=== PATIENT | female | born 1990 | race Caucasian/White ===

== ENCOUNTER 2016-10-09 18:21 | Emergency (ER) ==
[2016-10-09 18:21] VITALS: BMI 29.5
[2016-10-09 18:31] VITALS: BP 141/74; TEMP 97.8
--- NOTE | 2016-10-09 18:41 | ED.PDOC ---
General ED Provider: Dr. KEL LACKEY JR Chief Complaint: Abscess Stated Complaint: has abcsess to base of neck--onset one week ago--area sl red- only minimally raised--states feels like prior abscess one yr ago NO TREATMENT IN PAST NO PMD. [ End ] Time Seen by Physician: 18:39 Mode of Arrival: Walk-In Information Source: Patient Exam Limitations: No limitations Nursing and Triage Documentation Reviewed and Agree: No Review of Systems - Review Of Systems Constitutional: Reports: Malaise Eyes: Reports: No symptoms Ears, Nose, Mouth, Throat: Reports: No symptoms Respiratory: Reports: No symptoms Cardiac: Reports: No symptoms GI: Reports: No symptoms : Reports: No symptoms Musculoskeletal: Reports: No symptoms Skin: Reports: Lesions, Lumps Neurological: Reports: No symptoms Endocrine: Reports: No symptoms Hematologic/Lymphatic: Reports: No symptoms All Other Systems: Other Past Medical History - Past Medical History Previously Healthy: Yes Endocrine: Reports: None Cardiovascular: Reports: None Respiratory: Reports: None Hematological: Reports: None Gastrointestinal: Reports: None Genitourinary: Reports: None Neuro/Psych: Reports: None Musculoskeletal: Reports: None Cancer: Reports: None Last Menstrual Period: 3 weeks ago - Surgical History General Surgical History: Reports: None - Family History Family History: Reports: None - Social History Smoking Status: Current some day smoker Hx Substance Use: No Alcohol Screening: None - Immunizations Tetanus Shot up to Date: Yes Physical Exam - Physical Exam Appearance: Well-appearing Pain Distress: Moderate Neck: Supple Respiratory: Airway patent Skin: Warm, Dry (note lesion left neck posterior) Neurological: Sensation intact, Motor intact, Reflexes intact, Cranial nerves intact, Alert, Oriented Critical Care Note - Critical Care Note Total Time (mins): 0 Course - Course Vital Signs: Temp Pulse Resp BP Pulse Ox 10/09/16 18:21 97.8 F 90 16 141/74 H 98 Departure - Departure Time of Disposition: 18:39 Disposition: HOME SELF-CARE Discharge Problem: Abscess or cellulitis, neck Instructions: Cellulitis (ED) Condition: Fair Pt referred to PMD for follow-up: Yes Additional Instructions: follow up with PMD may follow up with [facility] antibiotic until gone warm soaks four times a day naprosyn for pain disucss excision of area with PMD (cut out when not inflamed) Prescriptions: Naproxen [Naprosyn] 500 mg PO Q12HR PRN #30 tablet PRN Reason: PAIN Sulfamethoxazole/Trimethoprim [Bactrim Ds Tablet] 1 tab PO Q12HR #20 tablet Allergies/Adverse Reactions: Allergies No Known Allergies Allergy (Verified 10/09/16 18:30) Home Medications: Ambulatory Orders Naproxen [Naprosyn] 500 mg PO Q12HR PRN #30 tablet 10/09/16 Sulfamethoxazole/Trimethoprim [Bactrim Ds Tablet] 1 tab PO Q12HR #20 tablet
== END 2016-10-09 18:47 | disposition home or self-care (01) ==
LOC: ED 18:21
DX: L02.11 Cutaneous abscess of neck (principal); F17.210 Nicotine dependence, cigarettes, uncomplicated
CPT/HCPCS: 99282

== ENCOUNTER 2016-12-15 16:21 | Emergency (ER) ==
[2016-12-15 16:28] VITALS: BP 156/84; TEMP 97.2; BMI 28.7
[2016-12-15] MEDS ORDERED: TORADOL IM STA (16:44)
--- NOTE | 2016-12-15 16:46 | ED.PDOC ---
General ED Provider: Dr. ALLISON HANLEY Chief Complaint: Tooth Problem Stated Complaint: while brushing today morning she boke her teeth on the rt lower jaw, hurting ever since. Time Seen by Physician: 16:44 Mode of Arrival: Walk-In Information Source: Patient Nursing and Triage Documentation Reviewed and Agree: Yes EENT Complaint Exam - Dental/Oral Complaint/Exam Mechanism of Injury: Trauma (brushing) Symptoms Are: Still present Timing: Constant Initial Severity: Moderate Current Severity: Moderate Character: Reports: Dull, Aching Aggravating: Reports: Chewing Alleviating: Reports: None Associated Signs and Symptoms: Reports: Foul odor, Foul taste in mouth. Denies : Swelling, Discharge, Fever Related History: Reports: Similar episode Cardiac Risk Factors: Reports: None Dental/Oral Surgical History: Reports: None Tooth Findings: Present: Gross decay, Gross caries Cervical Lymphadenopathy Present: No Facial Swelling Present: No Bleeding Present: No Teeth Picture: 1 - broken teeth, caries Differential Diagnoses: Dental Caries, Fractured Tooth Review of Systems - Review Of Systems Constitutional: Reports: No symptoms Eyes: Reports: No symptoms Ears, Nose, Mouth, Throat: Reports: Mouth pain Respiratory: Reports: No symptoms Cardiac: Reports: No symptoms GI: Reports: No symptoms : Reports: No symptoms Musculoskeletal: Reports: No symptoms Skin: Reports: No symptoms Neurological: Reports: No symptoms Endocrine: Reports: No symptoms Hematologic/Lymphatic: Reports: No symptoms All Other Systems: Reviewed and Negative Past Medical History - Past Medical History Previously Healthy: Yes Endocrine: Reports: None Cardiovascular: Reports: None Respiratory: Reports: None Hematological: Reports: None Gastrointestinal: Reports: None Genitourinary: Reports: None Neuro/Psych: Reports: None Musculoskeletal: Reports: None Cancer: Reports: None Last Menstrual Period: 1 week ago - Surgical History General Surgical History: Reports: None - Family History Family History: Reports: None - Social History Smoking Status: Current every day smoker, Current some day smoker, Light tobacco smoker Smoking Cessation Counseling Time: > 3 min - 10 min Hx Substance Use: No Alcohol Screening: None - Immunizations Tetanus Shot up to Date: Yes Physical Exam - Physical Exam Appearance: Well-appearing, Well-nourished Pain Distress: Mild Eyes: JUANJOSE, EOMI, Conjunctiva clear ENT: Ears normal, Nose normal, Oropharynx normal Respiratory: Airway patent, Breath sounds clear, Breath sounds equal, Respirations nonlabored Cardiovascular: RRR, Pulses normal, No rub, No murmur GI/: Soft, Nontender, No masses, Bowel sounds normal, No Organomegaly Musculoskeletal: Normal strength, ROM intact, No edema, No calf tenderness Skin: Warm, Dry, Normal color Neurological: Sensation intact, Motor intact, Reflexes intact, Cranial nerves intact, Alert, Oriented Psychiatric: Affect appropriate, Mood appropriate Critical Care Note - Critical Care Note Total Time (mins): 0 Course - Course Vital Signs: Temp Pulse Resp BP Pulse Ox 12/15/16 16:22 97.2 F L 83 18 156/84 H 98 Departure - Departure Time of Disposition: 16:49 Disposition: HOME SELF-CARE Discharge Problem: Dental caries Fractured tooth Qualifiers: Encounter type: initial encounter Fracture type: closed Qualifier Code: ( [id number]) Fracture of tooth (traumatic), initial encounter for closed fracture Instructions: Dental Caries (ED) Condition: Stable Pt referred to PMD for follow-up: Yes (dentist) Additional Instructions: soft diet NEEDS F/U WITH DENTIST Prescriptions: Tramadol HCl 50 mg PO BID #14 tablet Allergies/Adverse Reactions: Allergies No Known Allergies Allergy (Verified 12/15/16 16:27) Home Medications: Ambulatory Orders Tramadol HCl 50 mg PO BID #14 tablet 12/15/16 Disposition Discussed With: Patient
== END 2016-12-15 16:58 | disposition home or self-care (01) ==
LOC: ED 16:21
DX: S02.5XXA Fracture of tooth (traumatic), initial encounter for closed fracture (principal); K02.7 Dental root caries; F17.210 Nicotine dependence, cigarettes, uncomplicated
CPT/HCPCS: 96372; 99282

== ENCOUNTER 2017-06-07 14:24 | Emergency (ER) ==
[2017-06-07 14:25] VITALS: BMI 28.7
[2017-06-07 14:31] VITALS: BP 149/87; TEMP 99.2
[2017-06-07] MEDS ORDERED: KEFLEX PO STA (14:54)
[2017-06-07] MEDS ORDERED: CLEOCIN PO STA (14:54)
[2017-06-07] MEDS ORDERED: TORADOL IM STA (14:54)
--- NOTE | 2017-06-07 14:57 | ED.PDOC ---
General ED Provider: Dr. ALLISON HANLEY Chief Complaint: Tooth Problem Stated Complaint: Right side of the face is swollen, tender, been planing to get to Dentist. Time Seen by Physician: 14:55 Mode of Arrival: Walk-In Information Source: Patient Nursing and Triage Documentation Reviewed and Agree: Yes EENT Complaint Exam - Dental/Oral Complaint/Exam Mechanism of Injury: No known trauma Symptoms Are: Still present Timing: Constant Initial Severity: Moderate Current Severity: Moderate Character: Reports: Dull, Aching Aggravating: Reports: Chewing, Exertion Alleviating: Reports: None Associated Signs and Symptoms: Reports: Foul odor, Foul taste in mouth. Denies : Swelling, Discharge, Fever Related History: Reports: Similar episode Cardiac Risk Factors: Reports: None Dental/Oral Surgical History: Reports: None Tooth Findings: Present: Percussion tenderness, Gross decay, Gross caries, Cellulitis Facial Swelling Present: Yes Teeth Picture: 1 - swollen gums broken teeth Differential Diagnoses: Dental Abcess, Dental Caries, Gingivitis Review of Systems - Review Of Systems Constitutional: Reports: No symptoms Eyes: Reports: No symptoms Ears, Nose, Mouth, Throat: Reports: Mouth pain, Mouth swelling Respiratory: Reports: No symptoms Cardiac: Reports: No symptoms GI: Reports: No symptoms : Reports: No symptoms Musculoskeletal: Reports: No symptoms Skin: Reports: No symptoms Neurological: Reports: No symptoms Endocrine: Reports: No symptoms Hematologic/Lymphatic: Reports: No symptoms All Other Systems: Reviewed and Negative Past Medical History - Past Medical History Previously Healthy: Yes Endocrine: Reports: None Cardiovascular: Reports: None Respiratory: Reports: None Hematological: Reports: None Gastrointestinal: Reports: None Genitourinary: Reports: None Neuro/Psych: Reports: None Musculoskeletal: Reports: None Cancer: Reports: None Last Menstrual Period: 2 weeks - Surgical History General Surgical History: Reports: None - Family History Family History: Reports: None - Social History Smoking Status: Current every day smoker, Light tobacco smoker Smoking Cessation Counseling Time: > 3 min - 10 min Hx Substance Use: No Alcohol Screening: None Physical Exam - Physical Exam Appearance: Ill-appearing, Obese Eyes: JUANJOSE, EOMI, Conjunctiva clear ENT: Ears normal, Nose normal, Oropharynx normal Respiratory: Airway patent, Breath sounds clear, Breath sounds equal, Respirations nonlabored Cardiovascular: RRR, Pulses normal, No rub, No murmur GI/: Soft, Nontender, No masses, Bowel sounds normal, No Organomegaly Musculoskeletal: Normal strength, ROM intact, No edema, No calf tenderness Skin: Warm, Dry, Normal color Neurological: Sensation intact, Motor intact, Reflexes intact, Cranial nerves intact, Alert, Oriented Psychiatric: Affect appropriate, Mood appropriate Critical Care Note - Critical Care Note Total Time (mins): 0 Course - Course Orders, Labs, Meds: Orders Category Date Time Status Cephalexin [Keflex] MEDS 06/07/17 14:54 Stat 500 mg PO ONCE STA Clindamycin HCl [Cleocin] MEDS 06/07/17 14:54 Stat 300 mg PO ONCE STA Ketorolac Tromethamine [Toradol] MEDS 06/07/17 14:54 Stat 60 mg IM ONCE STA Medications Discontinued Medications Generic Name Dose Route Start Last Admin Trade Name John PRN Reason Stop Dose Admin Ketorolac Tromethamine 60 mg 06/07/17 14:54 Toradol IM 06/07/17 14:55 ONCE STA Vital Signs: Temp Pulse Resp BP Pulse Ox 06/07/17 14:25 99.2 F 92 H 20 149/87 H 98 Departure - Departure Time of Disposition: 14:59 Disposition: HOME SELF-CARE Discharge Problem: Toothache Instructions: Toothache (ED) Condition: Good Pt referred to PMD for follow-up: Yes Additional Instructions: take medication with food needs f/u with dentist Prescriptions: Cephalexin [Keflex] 500 mg PO Q12HR #20 capsule Clindamycin HCl 300 mg PO TID #15 capsule Tramadol HCl 50 mg PO BID #14 tablet Allergies/Adverse Reactions: Allergies No Known Allergies Allergy (Verified 06/07/17 14:30) Home Medications: Ambulatory Orders Cephalexin [Keflex] 500 mg PO Q12HR #20 capsule 06/07/17 Clindamycin HCl 300 mg PO TID #15 capsule 06/07/17 Tramadol HCl 50 mg PO BID #14 tablet 06/07/17 Disposition Discussed With: Patient
== END 2017-06-07 15:28 | disposition home or self-care (01) ==
LOC: ED 14:24
DX: K08.89 Other specified disorders of teeth and supporting structures (principal); F17.210 Nicotine dependence, cigarettes, uncomplicated
CPT/HCPCS: 96372; 99282

== ENCOUNTER 2017-06-08 12:31 | Emergency (ER) ==
[2017-06-08 12:31] VITALS: BMI 28.7
[2017-06-08 12:35] VITALS: BP 152/87; TEMP 98.9
--- NOTE | 2017-06-08 12:39 | ED.PDOC ---
General ED Provider: Dr. OBIE MILLER-ER Chief Complaint: Tooth Problem Stated Complaint: my tooth still hurts--"shouldnt the antbx make it better by now?" Time Seen by Physician: 12:38 Mode of Arrival: Walk-In Information Source: Patient Exam Limitations: No limitations Nursing and Triage Documentation Reviewed and Agree: Yes EENT Complaint Exam - Dental/Oral Complaint/Exam Mechanism of Injury: No known trauma Onset/Duration: several days Symptoms Are: Still present Timing: Constant Initial Severity: Mild Current Severity: Moderate Location: right promolar Character: Reports: Dull, Aching, Throbbing Aggravating: Reports: Heat, Cold, Chewing Alleviating: Reports: None Associated Signs and Symptoms: Reports: Swelling. Denies: Discharge, Fever, Foul odor Related History: Reports: Previous tooth problem Cervical Lymphadenopathy Present: No Facial Swelling Present: No Bleeding Present: No Oropharynx Findings: Absent: Clots, Active bleeding Septal Hematoma: No Foreign Body Present: No Drooling Present: No Asymmetrical Tonsillar Swelling Present: No Uvula Midline: Yes Fidelia-tonsillar Fluctuence: No Trismus Present: No Palatal Petechiae Present: No Scarlatinaform Rash Present: No Differential Diagnoses: Dental Abcess, Dental Caries, Gingivitis Review of Systems - Review Of Systems Constitutional: Reports: No symptoms Eyes: Reports: No symptoms Ears, Nose, Mouth, Throat: Reports: Mouth pain Respiratory: Reports: No symptoms Cardiac: Reports: No symptoms GI: Reports: No symptoms : Reports: No symptoms Musculoskeletal: Reports: No symptoms Skin: Reports: No symptoms Neurological: Reports: No symptoms Endocrine: Reports: No symptoms Hematologic/Lymphatic: Reports: No symptoms All Other Systems: Reviewed and Negative Past Medical History - Past Medical History Previously Healthy: Yes Endocrine: Reports: None Cardiovascular: Reports: None Respiratory: Reports: None Hematological: Reports: None Gastrointestinal: Reports: None Genitourinary: Reports: None Neuro/Psych: Reports: None Musculoskeletal: Reports: None Cancer: Reports: None Last Menstrual Period: 2 weeks ago - Surgical History General Surgical History: Reports: None - Family History Family History: Reports: None - Social History Smoking Status: Current every day smoker, Current some day smoker, Light tobacco smoker Hx Substance Use: No Alcohol Screening: None Lives: With family Physical Exam - Physical Exam Appearance: Well-appearing, No pain distress, Well-nourished Pain Distress: Moderate Eyes: JUANJOSE, EOMI, Conjunctiva clear ENT: Ears normal, Nose normal, Oropharynx normal (noted right upper premolar -- appears tender --noted some swelling around gums) Neck: Supple Respiratory: Airway patent Cardiovascular: RRR, Pulses normal, No rub, No murmur GI/: Soft, Nontender, No masses, Bowel sounds normal, No Organomegaly Musculoskeletal: Normal strength, ROM intact, No edema, No calf tenderness Skin: Warm, Dry, Normal color Neurological: Sensation intact, Motor intact, Reflexes intact, Cranial nerves intact, Alert, Oriented Psychiatric: Affect appropriate, Mood appropriate Critical Care Note - Critical Care Note Total Time (mins): 0 Course - Course Vital Signs: Temp Pulse Resp BP Pulse Ox 06/08/17 12:31 98.9 F 83 20 152/87 H 98 Departure - Departure Time of Disposition: 12:40 Disposition: HOME SELF-CARE Discharge Problem: Toothache Instructions: Toothache (ED) Condition: Good Pt referred to PMD for follow-up: Yes Additional Instructions: stop ultram---norco 7.5mg q 4hrs prn pain #10--f/u dentist maria g---continue antbx Allergies/Adverse Reactions: Allergies No Known Allergies Allergy (Verified 06/08/17 12:35) Home Medications: Ambulatory Orders Cephalexin [Keflex] 500 mg PO Q12HR #20 capsule 06/07/17 Clindamycin HCl 300 mg PO TID #15 capsule 06/07/17 Tramadol HCl 50 mg PO BID #14 tablet 06/07/17 Disposition Discussed With: Patient
== END 2017-06-08 12:51 | disposition home or self-care (01) ==
LOC: ED 12:31
DX: K08.89 Other specified disorders of teeth and supporting structures (principal); F17.210 Nicotine dependence, cigarettes, uncomplicated
CPT/HCPCS: 99282

== ENCOUNTER 2018-01-27 12:49 | Emergency (ER) ==
[2018-01-27 12:50] VITALS: BMI 28.7
--- NOTE | 2018-01-27 14:45 | ED.PDOC ---
General ED Provider: Dr. OBIE NO Chief Complaint: Abdominal Pain Stated Complaint: Severe lower abdominal and pelvic pain. Sudden onset today at 1000 hrs. States similar to problem she had several years ago with tubal infection. FDLMP 4 days ago. Denies symptoms or vaginal discharge. Patient appears in acute distress Time Seen by Physician: 14:30 Mode of Arrival: Walk-In Information Source: Patient Exam Limitations: Clinical condition [facility] Nursing and Triage Documentation Reviewed and Agree: Yes Reviewed sepsis parameters & appropriate labs ordered?: Yes System Inflammatory Response Syndrome: Not Applicable Sepsis Protocol: For patient's 13 years and over: Temp is 96.8 and below OR 101 and greater Pulse >90 BPM Resp >20/minute Acutely Altered Mental Status Are patient's symptoms suggestive of a new infection, such as: -Pneumonia -Skin, Soft Tissue -Endocarditis -UTI -Bone, Joint Infection -Implantable Device -Acute Abdominal Infection -Wound Infection -Meningitis -Blood Stream Catheter Infection -Unknown System Inflammatory Response Syndrome: Not Applicable GI Complaint Exam - Abdominal Pain Complaint/Exam Onset: Sudden Symptoms Are: Still present Timing: Constant Initial Severity: Severe Current Severity: Severe Location of Pain: Diffuse, LUQ, Suprapubic Character: Reports: Throbbing, Cramping Aggravating: Reports: Movement, Deep breaths, Position Alleviating: Reports: None Associated Signs and Symptoms: Reports: Dizziness, Back pain, Decreased urine output, Nausea. Denies: Constipation, Dysuria, Vaginal discharge, Vomiting, Diarrhea Related History: Reports: Similar episode AAA Risk Factors: Reports: None Cardiac Risk Factors: Reports: None Ectopic Risk Factors: Reports: None Ovarian Torsion Risk Factors: Reports: None Surgical Obstruction Risk Factors: Reports: None Related Surgical History: Reports: None Patient Rh Status: Unknown Abdominal Findings: Present: None Differential Diagnoses: Renal Colic, Ectopic , Ovarian Cyst, PID Review of Systems - Review Of Systems Constitutional: Reports: No symptoms Eyes: Reports: No symptoms Ears, Nose, Mouth, Throat: Reports: No symptoms Respiratory: Reports: No symptoms Cardiac: Reports: No symptoms GI: Reports: No symptoms : Reports: Flank pain, Other (pelvic pain ) Musculoskeletal: Reports: No symptoms Skin: Reports: No symptoms Neurological: Reports: No symptoms Endocrine: Reports: No symptoms Hematologic/Lymphatic: Reports: No symptoms All Other Systems: Reviewed and Negative Past Medical History - Past Medical History Previously Healthy: Yes Endocrine: Reports: None Cardiovascular: Reports: None Respiratory: Reports: None Hematological: Reports: None Gastrointestinal: Reports: None Genitourinary: Reports: None Neuro/Psych: Reports: None Musculoskeletal: Reports: None Cancer: Reports: None Last Menstrual Period: 4 days ago - Surgical History General Surgical History: Reports: None - Family History Family History: Reports: None - Social History Smoking Status: Current every day smoker, Current some day smoker, Light tobacco smoker Hx Substance Use: No Alcohol Screening: None Physical Exam - Physical Exam Appearance: Ill-appearing Pain Distress: Severe Eyes: JUANJOSE, EOMI, Conjunctiva clear ENT: Ears normal, Nose normal, Oropharynx normal Respiratory: Airway patent, Breath sounds clear, Breath sounds equal, Respirations nonlabored Cardiovascular: RRR, Pulses normal, No rub, No murmur GI/: Soft, Tender (Rebound ; no guarding ), Bowel sounds hypoactive Musculoskeletal: Normal strength Skin: Warm, Dry, Normal color Neurological: Sensation intact, Motor intact, Reflexes intact, Cranial nerves intact, Alert, Oriented Psychiatric: Affect appropriate, Mood appropriate Interpretation - Radiology Interpretation Radiology Interpretation By: Radiologist Radiology Results: Positive Exam Interpreted: CT Scan Re-Evaluation - Re-Evaluation Time of Re-Evaluation: 16:30 (Prefers [place] Referral) Status: Improved Vital Signs Stable: Yes Appearance: NAD Lungs: Clear Skin: Warm and Dry Neuro: Alert and Oriented X3 CV: RRR Additional Comments: Discussed findings with patient. Recommend transfer for OB/ CALL CENTER DISPATCHER Consult Critical Care Note - Critical Care Note Total Time (mins): 60 Course - Course Hematology/Chemistry: 01/27/18 14:47 01/27/18 15:00 Orders, Labs, Meds: Lab Review 01/27/18 01/27/18 01/27/18 13:05 14:47 15:00 WBC 10.27 H RBC 4.18 L Hgb 12.9 Hct 38.2 MCV 91.4 MCH 30.9 MCHC 33.8 RDW Coeff of Nixon 13.6 Plt Count 435 Immature Gran % (Auto) 0.3 Neut % (Auto) 61.1 Lymph % (Auto) 28.5 [place] % (Auto) 6.9 Eos % (Auto) 1.9 Baso % (Auto) 1.3 Immature Gran # (Auto) 0.0 Neut # (Auto) 6.3 Lymph # (Auto) 2.9 [place] # (Auto) 0.7 Eos # (Auto) 0.2 Baso # (Auto) 0.1 Sodium 139 Potassium 3.7 Chloride 107 Carbon Dioxide 23 Anion Gap 12.7 BUN 8 Creatinine 0.64 Estimated GFR (MDRD) 110.00 BUN/Creatinine Ratio 12.50 Glucose 79 Calcium 9.2 Total Bilirubin 0.2 AST 14 L ALT 13 Alkaline Phosphatase 57 Total Protein 6.6 Albumin 3.5 Globulin 3.1 Albumin/Globulin Ratio 1.13 Lipase 6 L Serum , Qual Urine Color Yellow Urine Clarity Clear Urine pH 7.0 Ur Specific [place] 1.015 Urine Protein Negative Urine Glucose (UA) Negative Urine Ketones Negative Urine Blood Trace-intact Urine Nitrite Negative Urine Bilirubin Negative Urine Urobilinogen 0.2 Ur Leukocyte Esterase 2+ Urine Microscopic RBC 2-5 Urine Microscopic WBC 2-5 Ur Squamous Epith Cells 10-20 Urine Trichomonas Few 01/27/18 15:00 WBC RBC Hgb Hct MCV MCH MCHC RDW Coeff of Nixon Plt Count Immature Gran % (Auto) Neut % (Auto) Lymph % (Auto) [place] % (Auto) Eos % (Auto) Baso % (Auto) Immature Gran # (Auto) Neut # (Auto) Lymph # (Auto) [place] # (Auto) Eos # (Auto) Baso # (Auto) Sodium Potassium Chloride Carbon Dioxide Anion Gap BUN Creatinine Estimated GFR (MDRD) BUN/Creatinine Ratio Glucose Calcium Total Bilirubin AST ALT Alkaline Phosphatase Total Protein Albumin Globulin Albumin/Globulin Ratio Lipase Serum , Qual Negative Urine Color Urine Clarity Urine pH Ur Specific [place] Urine Protein Urine Glucose (UA) Urine Ketones Urine Blood Urine Nitrite Urine Bilirubin Urine Urobilinogen Ur Leukocyte Esterase Urine Microscopic RBC Urine Microscopic WBC Ur Squamous Epith Cells Urine Trichomonas Orders Category Date Time Status IV [ED IV/MEDIPORT/POWERPORT] .ONCE EMERGENCY 01/27/18 14:48 Active CBC W/ AUTO DIFF Stat LAB 01/27/18 14:47 Completed CMP [COMPREHENSIVE METABOLIC PANEL] Stat LAB 01/27/18 15:00 Completed HCG QUALITATIVE [SERUM ] Stat LAB 01/27/18 15:00 Completed LIPASE Stat LAB 01/27/18 15:00 Completed UA [URINALYSIS C & S IF INDICATED] Stat LAB 01/27/18 13:05 Completed 0.9 % Sodium Chloride [Saline Flush] MEDS 01/27/18 14:47 Active 1 syr IVF PRN PRN Hydromorphone HCl [Dilaudid] MEDS 01/27/18 14:51 Discontinued 1 mg IVP ONCE STA Ondansetron HCl/Pf [Zofran 4 mg/2 ml] MEDS 01/27/18 14:51 Discontinued 4 mg IVP ONCE STA Piperacillin Sodium/Tazobactam [Zosyn 3.375 gm] 3.375 MEDS 01/27/18 16:41 Active gm 0.9 % Sodium Chloride [Sodium Chloride] 50 ml IV ONCE Sodium Chloride 0.9% [Sodium Chloride] 1,000 ml MEDS 01/27/18 14:[address] ABDOMEN/PELVIS WO CONTRAST Stat RADS 01/27/18 14:59 Completed Medications Generic Name Dose Route Start Last Admin Trade Name Freq PRN Reason Stop Dose Admin Piperacillin Sod/Tazobactam 50 mls @ 50 mls/hr 01/27/18 16:41 01/27/18 17:04 Sod 3.375 gm/ Sodium Chloride IV 01/27/18 17:40 50 mls/hr ONCE STA Administration Sodium Chloride 1 syr 01/27/18 14:47 01/27/18 15:08 Saline Flush IVF 1 syr PRN PRN Administration To flush IV Discontinued Medications Generic Name Dose Route Start Last Admin Trade Name Freq PRN Reason Stop Dose Admin Hydromorphone HCl 1 mg 01/27/18 14:51 01/27/18 15:13 Dilaudid IVP 01/27/18 14:52 1 mg ONCE STA Administration Sodium Chloride 1,000 mls @ 500 mls/hr 01/27/18 14:50 01/27/18 15:08 Sodium Chloride IV 01/27/18 16:49 500 mls/hr BOLUS STA Administration Ondansetron HCl 4 mg 01/27/18 14:51 01/27/18 15:09 Zofran 4 Mg/2 Ml IVP 01/27/18 14:52 4 mg ONCE STA Administration Vital Signs: Temp Pulse Resp BP Pulse Ox 01/27/18 16:55 97.3 F L 75 18 148/92 H 100 01/27/18 12:50 98.3 F 89 20 188/92 H 96 Departure - Departure Time of Disposition: 17:15 Disposition: TSF SHORT-TRM HOSP Discharge Problem: Acute pelvic pain, female, Adnexal mass, Trichomonas vaginalis (TV) infection Condition: Good Pt referred to PMD for follow-up: Yes IPMP verified?: No Allergies/Adverse Reactions: Allergies No Known Allergies Allergy (Verified 01/27/18 12:52) Home Medications: Ambulatory Orders 1 [No Reported Medications] 01/27/18 Transfer Form Completed: Yes Disposition Discussed With: Patient, Family (Discussed with Dr Mara Anthony at [facility]. Agrees to accept pt in transfer)
[2018-01-27] MEDS ORDERED: SODIUM CHLORIDE 1,000 ML IV STA (14:50)
[2018-01-27] MEDS ORDERED: ZOFRAN 4 MG/2 ML IVP STA (14:51)
[2018-01-27] MEDS ORDERED: DILAUDID IVP STA (14:51)
--- NOTE | 2018-01-27 15:53 | CT ---
Exam: CT abdomen pelvis without intravenous contrast. Comparison: 12/04/2014. Reason for exam: Pain. FINDINGS: There is mild basilar atelectasis without pleural effusion, or focal consolidation. The liver, gallbladder, spleen, adrenal glands, and pancreas appear grossly unremarkable within limit ations of a noncontrasted study. No hydronephrosis, hydroureter, or nephrolithiasis is seen in either kidney. No focal small bowel dilatation or transition point. No intra-abdominal free air. The appendix is unremarkable. 3.9 cm lesion measuring 20 HU in the left jamel pelvis with surrounding inflammatory change and free f luid. Imaging findings may represent adnexa/ovary in etiology. Nodular density in the subcutaneous fat of the anterior pelvis seen on axial image number 137. No estuardo picious appearing osteoblastic or osteolytic lesions. Impression: 1. 3.9 cm 20 HU lesion in the left jamel pelvis with surrounding free fluid and inflammatory change. Imaging findings are likely adnexal or ovarian in origin. Transabdominal and transvaginal ultrasonog raphic evaluation may be performed for further characterization. 2. Otherwise, no acute imaging findings are seen within the abdomen or pelvis. Report faxed at [phone] hours on 01/27/2018.
[2018-01-27] MEDS ORDERED: ZOSYN 3.375 GM 3.375 GM in SODIUM CHLORIDE 50 ML IV STA (16:41)
[2018-01-27 16:56] VITALS: BP 148/92; TEMP 97.3
[2018-01-27] MEDS ORDERED: FLAGYL 500 MG/100 ML 500 MG in PREMIX 100 ML NS 1 BAG IV STA (17:30)
== END 2018-01-27 17:55 | disposition short-term general hospital (02) ==
LOC: ED 12:49
DX: A59.01 Trichomonal vulvovaginitis (principal); R19.09 Other intra-abdominal and pelvic swelling, mass and lump; R10.2 Pelvic and perineal pain; F17.210 Nicotine dependence, cigarettes, uncomplicated
CPT/HCPCS: 36415; 80053; 81001; 83690; 84703; 85025; 96361; 96365; 96375; 99285

== ENCOUNTER 2018-01-27 17:55 | Outpatient (CLI) ==
[2018-01-27 12:50] VITALS: BMI 28.7
== END 2018-01-27 18:17 | disposition short-term general hospital (02) ==
LOC: AMBL 17:55
PROVIDERS: ATTEND Emergency Medicine
DX: R10.9 Unspecified abdominal pain (principal); R19.00 Intra-abdominal and pelvic swelling, mass and lump, unspecified site

== ENCOUNTER 2018-03-06 11:28 | Emergency (ER) ==
[2018-03-06 11:56] VITALS: BP 122/76; TEMP 98; BMI 31.8
--- NOTE | 2018-03-06 12:08 | DI ---
Exam: Three views of the right wrist. Comparison: None available. Reason for exam: Injury. FINDINGS: Minimally-displaced fracture of the right distal radius. The ulna appears intact. The ri ght wrist appears grossly unremarkable. Impression: Minimally displaced fracture of the right distal radius.
--- NOTE | 2018-03-06 12:08 | DI ---
Exam: Three views of the right hand. Comparison: None available. Reason for exam: Injury. FINDINGS: There is a minimally displaced fracture of the right distal radius. The ulna appears inta ct. The right wrist and osseous structures of the right hand appear unremarkable. Impression: Minimally displaced fracture of the right distal radius.
--- NOTE | 2018-03-06 12:12 | ED.PDOC ---
General ED Provider: Dr. SHY IGLESIAS Chief Complaint: Wrist Pain/Injury Stated Complaint: right wrist/hand injury Time Seen by Physician: 11:30 (seen with shar) Mode of Arrival: Walk-In Information Source: Patient Exam Limitations: No limitations Primary Care Provider: ALLISON HOOKS Referred to ED by: Other (fall 1 day ago) Nursing and Triage Documentation Reviewed and Agree: Yes Does patient meet sepsis criteria?: Yes If yes, has appropriate treatment been initiated?: Yes System Inflammatory Response Syndrome: Not Applicable Sepsis Protocol: For patient's 13 years and over: Temp is 96.8 and below OR 101 and greater Pulse >90 BPM Resp >20/minute Acutely Altered Mental Status Are patient's symptoms suggestive of a new infection, such as: -Pneumonia -Skin, Soft Tissue -Endocarditis -UTI -Bone, Joint Infection -Implantable Device -Acute Abdominal Infection -Wound Infection -Meningitis -Blood Stream Catheter Infection -Unknown Musculoskeletal Complaint Exam - Hand/Wrist Complaint/Exam Location of Pain: Reports: Right, Hand, Wrist Mechanism of Injury: Reports: Trauma Onset/Duration: 1 FOOSH INJURY Symptoms Are: Still present Onset of Pain: Reports: Immediate Initial Severity: Moderate Current Severity: Moderate Location: Reports: Discrete Character: Reports: Aching Alleviating: Reports: Rest Aggravating: Reports: Movement Associated Signs and Symptoms: Reports: Swelling. Denies: Redness, Bruising, Fever, Weakness, Numbness, Tingling Dominant Hand: Right Related Surgical History: Reports: None Hand/Wrist Findings: Present: Swelling, Abnormal contour Tenderness: Present: Radius. Absent: Snuff box, Carpal, Metacarpal, Phalanx Differential Diagnoses: Closed Fracture, Sprain, Strain Review of Systems - Review Of Systems Constitutional: Reports: No symptoms Eyes: Reports: No symptoms Ears, Nose, Mouth, Throat: Reports: No symptoms Respiratory: Reports: No symptoms Cardiac: Reports: No symptoms GI: Reports: No symptoms : Reports: No symptoms Musculoskeletal: Reports: Joint pain (RIGHT WRIST) Skin: Reports: No symptoms Neurological: Reports: No symptoms Endocrine: Reports: No symptoms Hematologic/Lymphatic: Reports: No symptoms All Other Systems: Reviewed and Negative Past Medical History - Past Medical History Previously Healthy: Yes Endocrine: Reports: None Cardiovascular: Reports: None Respiratory: Reports: None Hematological: Reports: None Gastrointestinal: Reports: None Genitourinary: Reports: None Neuro/Psych: Reports: None Musculoskeletal: Reports: None Cancer: Reports: None Last Menstrual Period: 02/13/18 - Surgical History General Surgical History: Reports: None - Family History Family History: Reports: None - Social History Smoking Status: Current every day smoker, Current some day smoker, Light tobacco smoker Hx Substance Use: No Alcohol Screening: None Physical Exam - Physical Exam Appearance: Well-appearing, No pain distress, Well-nourished Eyes: JUANJOSE, EOMI, Conjunctiva clear ENT: Ears normal, Nose normal, Oropharynx normal Respiratory: Airway patent, Breath sounds clear, Breath sounds equal, Respirations nonlabored Cardiovascular: RRR, Pulses normal, No rub, No murmur GI/: Soft, Nontender, No masses, Bowel sounds normal, No Organomegaly Musculoskeletal: Limited ROM (RIGHT WRIST/ EDEMA ), Limited strength ( NEUROVASCULAR STATUS STABLE) Skin: Warm, Dry, Normal color Neurological: Sensation intact, Motor intact, Reflexes intact, Cranial nerves intact, Alert, Oriented Psychiatric: Affect appropriate, Mood appropriate Interpretation - Radiology Interpretation Radiology Interpretation By: Radiologist (RIGHT DISTAL RADIAL FX) Radiology Results: Positive (FX) Critical Care Note - Critical Care Note Total Time (mins): 0 Course - Course Orders, Labs, Meds: Orders Category Date Time Status HAND, RIGHT 3 VIEWS Stat RADS 03/06/18 11:36 Completed WRIST, RIGHT 3 VIEWS Stat RADS 03/06/18 11:36 Completed Vital Signs: Temp Pulse Resp BP Pulse Ox 03/06/18 11:29 98.0 F 89 18 122/76 99 Departure - Departure Time of Disposition: 12:13 Disposition: HOME SELF-CARE Discharge Problem: Pain in wrist Wrist fracture, right Qualifiers: Encounter type: initial encounter Fracture type: closed Qualified Code(s): S62.101A - Fracture of unspecified carpal bone, right wrist, initial encounter for closed fracture Instructions: Wrist Fracture in Adults (ED) Condition: Good Pt referred to PMD for follow-up: Yes IPMP verified?: No Additional Instructions: Please call your Family Physician as soon as possible to schedule a follow-up appointment.YOUR WRIST IS BROKEN MUST SEE YOUR MD APARNA Allergies/Adverse Reactions: Allergies No Known Allergies Allergy (Verified 03/06/18 11:34) Home Medications: Ambulatory Orders 1 [No Reported Medications] 01/27/18 Disposition Discussed With: Patient
== END 2018-03-06 12:28 | disposition home or self-care (01) ==
LOC: ED 11:28
DX: S62.101A Fracture of unspecified carpal bone, right wrist, initial encounter for closed fracture (principal); W19.XXXA Unspecified fall, initial encounter; F17.210 Nicotine dependence, cigarettes, uncomplicated
CPT/HCPCS: 99283

== ENCOUNTER 2018-04-20 15:40 | Emergency (ER) ==
[2018-04-20 15:44] VITALS: BP 156/87; TEMP 99.8; BMI 32.5
--- NOTE | 2018-04-20 16:02 | ED.PDOC ---
General ED Provider: Dr. SHY IGLESIAS Chief Complaint: Tooth Problem Stated Complaint: dental pain Time Seen by Physician: 15:47 (chronic dental pain) Mode of Arrival: Walk-In Information Source: Patient Exam Limitations: No limitations Primary [facility] Nursing and Triage Documentation Reviewed and Agree: Yes Does patient meet sepsis criteria?: No System Inflammatory Response Syndrome: Not Applicable Sepsis Protocol: For patient's 13 years and over: Temp is 96.8 and below OR 101 and greater Pulse >90 BPM Resp >20/minute Acutely Altered Mental Status Are patient's symptoms suggestive of a new infection, such as: -Pneumonia -Skin, Soft Tissue -Endocarditis -UTI -Bone, Joint Infection -Implantable Device -Acute Abdominal Infection -Wound Infection -Meningitis -Blood Stream Catheter Infection -Unknown EENT Complaint Exam - Dental/Oral Complaint/Exam Mechanism of Injury: No known trauma Onset/Duration: chronic Symptoms Are: Still present Timing: Constant Initial Severity: Moderate Current Severity: Moderate Character: Reports: Aching, Throbbing Aggravating: Reports: Heat, Cold, Chewing Alleviating: Reports: None Associated Signs and Symptoms: Denies: Swelling, Discharge, Fever, Foul odor, Foul taste in mouth Related History: Reports: Similar episode, Previous tooth problem Dysphagia Present: No Drooling Present: No Asymmetrical Tonsillar Swelling Present: No Uvula Midline: Yes Fidelia-tonsillar Fluctuence: No Trismus Present: No Palatal Petechiae Present: No Scarlatinaform Rash Present: No Lesions: Absent: Lip, Gums, Tongue, Buccal Mucosa, Pharynx Exanthem: Absent: Lip, Gums, Tongue, Buccal Mucosa, Pharynx Vesicles: Absent: Lip, Gums, Tongue, Buccal Mucosa, Pharynx Teeth Picture: 1 - widespread decay Differential Diagnoses: Dental Caries Review of Systems - Review Of Systems Constitutional: Reports: No symptoms Eyes: Reports: No symptoms Ears, Nose, Mouth, Throat: Reports: Mouth pain Respiratory: Reports: No symptoms Cardiac: Reports: No symptoms GI: Reports: No symptoms : Reports: No symptoms Musculoskeletal: Reports: No symptoms Skin: Reports: No symptoms Neurological: Reports: No symptoms Endocrine: Reports: No symptoms Hematologic/Lymphatic: Reports: No symptoms All Other Systems: Reviewed and Negative Past Medical History - Past Medical History Previously Healthy: Yes Endocrine: Reports: None Cardiovascular: Reports: None Respiratory: Reports: None Hematological: Reports: None Gastrointestinal: Reports: None Genitourinary: Reports: None Neuro/Psych: Reports: None Musculoskeletal: Reports: None Cancer: Reports: None Last Menstrual Period: 1 month ago - Surgical History General Surgical History: Reports: None - Family History Family History: Reports: None - Social History Smoking Status: Current every day smoker, Light tobacco smoker Hx Substance Use: No Alcohol Screening: None Physical Exam - Physical Exam Appearance: Well-appearing, No pain distress, Well-nourished Eyes: JUANJOSE, EOMI, Conjunctiva clear ENT: Ears normal, Nose normal, Oropharynx normal Respiratory: Airway patent, Breath sounds clear, Breath sounds equal, Respirations nonlabored Cardiovascular: RRR, Pulses normal, No rub, No murmur GI/: Soft, Nontender, No masses, Bowel sounds normal, No Organomegaly Musculoskeletal: Normal strength, ROM intact, No edema, No calf tenderness Skin: Warm, Dry, Normal color Neurological: Sensation intact, Motor intact, Reflexes intact, Cranial nerves intact, Alert, Oriented Psychiatric: Affect appropriate, Mood appropriate Critical Care Note - Critical Care Note Total Time (mins): 0 Course - Course Vital Signs: Temp Pulse Resp BP Pulse Ox 04/20/18 15:40 99.8 F H 81 18 156/87 H 98 Departure - Departure Time of Disposition: 16:01 Disposition: HOME SELF-CARE Discharge Problem: Toothache Instructions: Toothache (ED) Condition: Good Pt referred to PMD for follow-up: Yes IPMP verified?: No Additional Instructions: Please call your Family Physician as soon as possible to schedule a follow-up appointment. Allergies/Adverse Reactions: Allergies No Known Allergies Allergy (Verified 04/20/18 15:44) Home Medications: Ambulatory Orders Amoxicillin 500 mg PO Q8HR #21 tablet 04/20/18 Hydrocodone/Acetaminophen [[place] 10-325 Tablet] 1 each PO Q8HR #12 tablet
== END 2018-04-20 16:09 | disposition home or self-care (01) ==
LOC: ED 15:40
DX: K08.89 Other specified disorders of teeth and supporting structures (principal); K02.9 Dental caries, unspecified; K13.79 Other lesions of oral mucosa; Z72.0 Tobacco use
CPT/HCPCS: 99282